=== PATIENT | female | born 1990 | race Caucasian/White ===

== ENCOUNTER 2018-05-03 19:06 | Emergency (ER) | payer BC ==
[2018-05-03 20:35] VITALS: BP 120/68
--- NOTE | 2018-05-03 20:56 | UC ---
Laceration HPI - HPI Summary HPI Summary: Cut her left thumb this evening chopping vegetables. Unknown tetanus status - History Of Current Complaint Chief Complaint: UCLaceration Stated Complaint: LEFT THUMB LAC Time Seen by Provider: 05/03/18 20:33 Hx Obtained From: Patient Hx Last Menstrual Period: 05/03/18 Laceration Location: Finger - left thumb Mechanism Of Injury: Sharp Trauma Onset/Duration: Sudden Onset, Still Present Severity: Mild Pain Intensity: 3 Aggravating Factors: Movement Hands: 1 - laceration 1.9 cm Related History: Dominant Hand Right - Allergies/Home Medications Allergies/Adverse Reactions: Allergies Allergy/AdvReac Type Severity Reaction Status Date / Time No Known Allergies Allergy Verified 05/03/18 20:18 Home Medications: Home Medications Adrenal Complex 1 tab PO DAILY 05/03/18 [History Confirmed 05/03/18] Amino AC/Whey Prot Conc, Isol [Whey Protein Powder] 1 pow PO DAILY 05/03/18 [ History Confirmed 05/03/18] Anxiety Tincture 1 udc PO DAILY PRN 05/03/18 [History Confirmed 05/03/18] B1/B2/Niacin/B12/Protease [B-Complex with B-12 Tablet] 1 tab PO DAILY 05/03/18 [ History Confirmed 05/03/18] Bio Feno F Vitamin 1 tab PO DAILY 05/03/18 [History Confirmed 05/03/18] Black Cummin Seed Oil 1 cap PO DAILY 05/03/18 [History Confirmed 05/03/18] Calming Powder 1 udc PO DAILY PRN 05/03/18 [History Confirmed 05/03/18] Cholecalciferol (Vitamin D3) [Vitamin D3] 1,000 unit PO DAILY 05/03/18 [History Confirmed 05/03/18] Cool Digestive Fire 1 udc PO DAILY 05/03/18 [History Confirmed 05/03/18] Digestive Biophenotype F 1 tab PO DAILY 05/03/18 [History Confirmed 05/03/18] Melatonin 5 mg PO BEDTIME PRN 05/03/18 [History Confirmed 05/03/18] Pro Brittanie Df 1 tab PO DAILY 05/03/18 [History Confirmed 05/03/18] Progestafem 1 udc TOPICAL DAILY 05/03/18 [History Confirmed 05/03/18] Rhodiola 1 tab PO DAILY 05/03/18 [History Confirmed 05/03/18] Thyroid Tonic 1 cap PO DAILY 05/03/18 [History Confirmed 05/03/18] Vit A and D3 in Cod Liver Oil [Cod Liver Oil Softgel] 1 cap PO DAILY 05/03/18 [ History Confirmed 05/03/18] Vitex [place] 1 tab PO DAILY 05/03/18 [History Confirmed 05/03/18] PMH/Surg Hx/FS Hx/Imm Hx Other Endocrine History: PCOS - Surgical History Surgical History: Yes Surgery Procedure, Year, and Place: wisdom teeth extractions - Family History Known Family History: Positive: Cardiac Disease, Hypertension, Diabetes - Social History Occupation: Employed Full-time Lives: With Family Alcohol Use: Rare Substance Use Type: None Smoking Status (MU): Never Smoked Tobacco Review of Systems All Other Systems Reviewed And Are Negative: Yes Is Patient Immunocompromised?: No Physical Exam Triage Information Reviewed: Yes Appearance: Well-Appearing, No Pain Distress, Well-Nourished Vital Signs: Initial Vital Signs Temp 97.9 F 05/03/18 20:31 Pulse 67 05/03/18 20:31 Resp 18 05/03/18 20:31 BP 120/68 05/03/18 20:31 Pulse Ox 100 05/03/18 20:31 Vital Signs Reviewed: Yes Eyes: Positive: Conjunctiva Clear Neck exam: Normal Respiratory Exam: Normal Cardiovascular Exam: Normal Musculoskeletal Exam: Normal Neurological Exam: Normal Psychological Exam: Normal Skin: Positive: Other - laceration left thumb Laceration Repair - Laceration Repair 1 Description: Linear Laceration Size After Repair: Length (cm) - 1.9 cm Modified For Repair: No Type Injection: Local Anesthesia Used: 2.0% Lido Additive Used (in ml): Epi Cleansing Completed Via Routine Prep: Yes Irrigation With Pressure Irrigation Device: Yes Closure Material: Sutures Closure Method: Single Layer - #5 running Suture Of: Skin Suture Type: Nylon - 4-0 Laceration Course/Dx - Differential Dx - Laceration/Wound Differental Diagnoses: Abrasion, Avulsion, Laceration - Diagnosis Provider Diagnosis: Laceration of left thumb Discharge - Sign-Out/Discharge Documenting (check all that apply): Patient Departure All imaging exams completed and their final reports reviewed: No Studies - Discharge Plan Condition: Stable Disposition: HOME Patient Education Materials: Finger Laceration (ED), Care For Your Stitches (ED ) Referrals: Ermelinda Kenney PA [Primary Care Provider] - (10 days suture removal) Additional Instructions: Use antibiotic ointment and a band aid twice a day until the sutures are removed. - Billing Disposition and Condition Condition: STABLE Disposition: Home
[2018-05-03] MEDS ORDERED: Tetan/Diph/Pertus SYR(Tdap)* 0.5 ML SYR(BOOSTRIX) use SYR IM ONE (21:23)
== END 2018-05-03 21:42 | disposition home or self-care (01) ==
LOC: UCCORT 19:06
DX: S61.012A Laceration without foreign body of left thumb without damage to nail, initial encounter (principal); Z23 Encounter for immunization; W45.8XXA Other foreign body or object entering through skin, initial encounter; Y93.89 Activity, other specified; Y92.9 Unspecified place or not applicable
CPT/HCPCS: 12001; 90471; 90715; 99202; G0463

== ENCOUNTER 2019-11-15 08:15 | Inpatient (IN) ==
[2019-11-15] MEDS ORDERED: Lactated Ringers 1000 ml BAG 1,000 ML IV ONE (10:16)
[2019-11-15] MEDS ORDERED: Penicillin G Potassium IV 5,000,000 UNITS in NS 0.9% 100 ml BAG 100 ML IVPB ONE (10:30)
[2019-11-15] MEDS ORDERED: Lactated Ringers 1000 ml BAG 1,000 ML IV SCH (11:00)
[2019-11-15 11:12] LABS: ABS Eosinophils 0.1 10^3/ul (0-0.6); ABS Lymphocytes 1.6 10^3/ul (1.0-4.8); ABS Monocytes 0.9 10^3/ul (0-0.8); ABS Neutrophils 6.8 10^3/ul (1.5-7.7); Eosinophil % 0.7 %; Hematocrit 37 % (35-47); Hemoglobin 12.8 g/dL (12.0-16.0); Lymphocyte % 17.2 %; Mean Corpuscular HGB Conc 35 g/dL (31-36); Mean Corpuscular Hemoglobin 32 pg (27-31); Mean Corpuscular Volume 90 fL (80-97); Mean Platelet Volume 10.8 fL (7.4-10.4); Platelet Count 159 10^3/uL (150-450); Red Blood Count 4.05 10^6 /uL (3.70-4.87); Red Cell Distribution Width 13 % (10-15); White Blood Count 9.5 10^3/uL (3.5-10.8)
[2019-11-15 11:45] LABS: Urine Benzodiazepine Screen None Detected (None Detect); Urine Cannabinoids Screen None Detected (None Detect); Urine Opiates Screen None Detected (None Detect)
[2019-11-15] MEDS: Penicillin G Potassium IV 3,000,000 UNITS in NS 0.9% 100 ml BAG 100 ML IVPB SCH ×3 (15:09→22:51)
[2019-11-15] MEDS ORDERED: Famotidine IV 10 MG/ML 2 ml VIAL (20 mg) IV SLOW PU ONE (20:47)
[2019-11-15] MEDS ORDERED: Ondansetron 4 mg VIAL 2 MG/ML 2 ml VIAL IV PRN (20:48)
[2019-11-15] MEDS ORDERED: Famotidine IV 10 MG/ML 2 ml VIAL (20 mg) ONE (20:50)
[2019-11-15] MEDS ORDERED: OBEPIDURAL 250 ML EPIDURAL ONE (22:53)
[2019-11-16] MEDS ORDERED: Phenylephrine 40 mcg/mL 10mL (400mcg) SYRINGE IV PUSH PRN ×2 (00:24)
[2019-11-16] MEDS ORDERED: Sodium Citrate/Citric Acid LIQ 15 ML UDC PO PRN (00:24)
[2019-11-16] MEDS ORDERED: Lactated Ringers 1000 ml BAG 1,000 ML IV ONE (00:24)
[2019-11-16] MEDS ORDERED: Terbutaline INJ 1 MG/ML 1 ml VIAL ONE (00:53)
[2019-11-16] MEDS ORDERED: OBEPIDURAL 250 ML EPIDURAL SCH (01:00)
[2019-11-16] MEDS ORDERED: Lactated Ringers 1000 ml BAG 1,000 ML IV SCH ×2 (01:00→04:00)
[2019-11-16] MEDS ORDERED: ceFOXitin 2 GM IVPREMIX 2 GM/50 ML BAG ONE (02:01)
[2019-11-16] MEDS ORDERED: ceFOXitin 2 GM IVPREMIX 2 GM/50 ML BAG IVPB ONE (02:04)
[2019-11-16] MEDS ORDERED: fentaNYL 100 mcg/2 ml 50 MCG/ML VIAL ONE (02:08)
[2019-11-16] MEDS ORDERED: Morphine PF AMP (0.5MG/ML) 5 MG/10 ML AMP ONE (02:08)
[2019-11-16] MEDS ORDERED: Ondansetron 4 mg VIAL 2 MG/ML 2 ml VIAL ONE (02:14)
[2019-11-16] MEDS ORDERED: Phenylephrine 40 mcg/mL 10mL (400mcg) SYRINGE ONE (02:23)
[2019-11-16] MEDS ORDERED: Oxytocin 10 UNITS/ML 1 ML VIAL ONE ×2 (02:31→02:32)
[2019-11-16] MEDS ORDERED: nitroGLYCERIN DRIP 25,000 MCG/250 ML BTL ONE (02:41)
[2019-11-16] MEDS ORDERED: fentaNYL 100 mcg/2 ml 50 MCG/ML VIAL IV PRN (03:04)
[2019-11-16] MEDS ORDERED: Naloxone 0.4 mg VIAL 0.4 mg/ml 1 ml VIAL IV PRN ×2 (03:04→03:06)
[2019-11-16] MEDS ORDERED: Prochlorperazine 5 mg/ml 2 ml VIAL (10 mg) IV PRN (03:04)
[2019-11-16] MEDS ORDERED: Ondansetron 4 mg VIAL 2 MG/ML 2 ml VIAL IV PRN (03:06)
[2019-11-16] MEDS ORDERED: Naloxone 4 mg VIAL (10 ml) 2 MG in NS 0.9% 250 ml 250 ML IV PRN (03:06)
[2019-11-16] MEDS ORDERED: Witch Hazel PAD JAR TOPICAL PRN (03:22)
[2019-11-16] MEDS ORDERED: Oxytocin in LR 20 UNITS/1,000 ML BAG IVPB ONE (03:42)
[2019-11-17 07:51] LABS: ABS Eosinophils 0.1 10^3/ul (0-0.6); ABS Lymphocytes 2.3 10^3/ul (1.0-4.8); ABS Monocytes 0.9 10^3/ul (0-0.8); ABS Neutrophils 7.6 10^3/ul (1.5-7.7); Eosinophil % 0.7 %; Hematocrit 26 % (35-47); Hemoglobin 9.4 g/dL (12.0-16.0); Lymphocyte % 20.8 %; Mean Corpuscular HGB Conc 37 g/dL (31-36); Mean Corpuscular Hemoglobin 34 pg (27-31); Mean Corpuscular Volume 91 fL (80-97); Mean Platelet Volume 10.8 fL (7.4-10.4); Platelet Count 115 10^3/uL (150-450); Red Cell Distribution Width 13 % (10-15); White Blood Count 10.9 10^3/uL (3.5-10.8)
[2019-11-17] MEDS: Witch Hazel PAD JAR TOPICAL PRN (19:44)
[2019-11-19 07:55] VITALS: BP 117/69
[2019-11-19] MEDS: Witch Hazel PAD JAR TOPICAL PRN (08:07)
== END 2019-11-19 16:30 | disposition home or self-care (01) | DRG 540 ==
LOC: MCHOBOUT 08:15 → MCHOB 10:12
PROVIDERS: ADMIT Midwife; ATTEND Obstetrics & Gynecology